=== PATIENT | female | born 1980 | race African-American/Black ===

== ENCOUNTER → 2017-11-21 | Outpatient (CLI) | payer BC ==
[~2017-11-21] MED LIST: GELATIN SPONGE SIZE 12-7MM SPONGE.; LIDOCAINE WITH 8.4% SOD BICARB 3 ML DISP.SYRIN.; MIDAZOLAM HCL/PF 2 MG/2 ML VIAL.; fentaNYL PF VIAL 100 MCG/2 ML VIAL
[2017-11-21 09:19] LABS: ADD MAN DIFF? NO
[2017-11-21 09:33] LABS: BASO % 1 % (0-3); EOS # 0.1 x10^3/uL (0.0-0.7); EOS % 2 % (0-3); HEMATOCRIT 35.3 % (36.0-47.0); HEMOGLOBIN 12.1 g/dL (12.0-15.5); LYMPH # 1.4 x10^3/uL (1.0-4.8); LYMPH % 27 % (24-48); MEAN CORPUSCULAR HEMOGLOBIN 32 pg (25-35); MEAN CORPUSCULAR HGB CONC 34 g/dL (31-37); MEAN CORPUSCULAR VOLUME 92 fL (79-100); MONO # 0.4 x10^3/uL (0.0-1.1); MONO % 8 % (0-9); NEUT # 3.3 x10^3uL (1.8-7.7); NEUT % 63 % (31-73); PLATELET COUNT 290 x10^3/uL (140-400); RED BLOOD COUNT 3.82 x10^6/uL (3.50-5.40); RED CELL DISTRIBUTION WIDTH 12.9 % (11.5-14.5); WHITE BLOOD COUNT 5.2 x10^3/uL (4.0-11.0)
[2017-11-21 09:34] LABS: PARTIAL THROMBOPLASTIN TIME 27 SEC (24-38); PROTHROMBIN TIME PATIENT 12.4 SEC (11.7-14.0)
[2017-11-21] MEDS: MIDAZOLAM HCL/PF 2 MG/2 ML VIAL. IV ×2 (10:45)
[2017-11-21] MEDS: fentaNYL PF VIAL 100 MCG/2 ML VIAL IV ×2 (10:45)
[2017-11-21] MEDS: LIDOCAINE WITH 8.4% SOD BICARB 3 ML DISP.SYRIN. IJ ×2 (10:45)
== END | disposition home or self-care (01) ==
LOC: INTRAD 08:54
DX: R80.9 Proteinuria, unspecified (principal); I10 Essential (primary) hypertension; E11.9 Type 2 diabetes mellitus without complications; Z90.710 Acquired absence of both cervix and uterus; Z79.01 Long term (current) use of anticoagulants; Z86.39 Personal history of other endocrine, nutritional and metabolic disease
CPT/HCPCS: 36415; 50200; 76942; 85025; 85610; 85730; 99152; J2250; J3010

== ENCOUNTER → 2019-02-20 | Outpatient (CLI) | payer BC, SELFPAY ==
[2017-11-21 13:20] VITALS: BP 112/73
[~2019-02-20] MED LIST changes: +COD1CAPS2 PO; +FLUT9.9S NS; -GELATIN SPONGE SIZE 12-7MM SPONGE.; +GLIP10TA13 PO; +INSU100I17 SQ; +INSU100I18 SQ; +INSU100I30 SQ; -LIDOCAINE WITH 8.4% SOD BICARB 3 ML DISP.SYRIN.; +LORA10TA68 PO; +LOSA-73 PO; -MIDAZOLAM HCL/PF 2 MG/2 ML VIAL.; +SITA100T PO; -fentaNYL PF VIAL 100 MCG/2 ML VIAL
--- NOTE | 2019-02-20 09:17 | RAD ---
February 20, 2019 INDICATION: Microscopic hematuria. COMPARISON: None available. TECHNIQUE: Sonographic evaluation of the abdomen is performed utilizing based on color Doppler. FINDINGS: Visualized portions of the pancreas appear normal. Distal body and tail are obscured by bowel gas. Gallbladder is normal in appearance without evidence for gallbladder wall thickening, gallstones or pericholecystic fluid. Common bile duct measures 3 mm. There is increased echogenicity of the hepatic parenchyma suggestive of hepatocellular disease, most commonly hepatic steatosis. This limits evaluation for underlying hepatic masses. There is hepatopedal flow within the portal venous system. Right hepatic lobe measures 14.6 cm. The right kidney measures 12.0 x 5.1 x 5.5 cm. The left kidney measures 11.3 x 4.6 x 6.4 cm. Left kidney is poorly visualized. There is a 2.8 x 1.6 x 2.1 cm simple appearing renal cyst in the mid to inferior pole the left kidney. Spleen measures 9.2 cm in craniocaudal dimension. Aorta and IVC are within normal limits. There is no free fluid within the abdomen. IMPRESSION: 1. No sonographic evidence for obstructive uropathy. A 2.8 cm simple appearing cyst is identified in the mid to inferior pole the left kidney. Otherwise, left kidney is poorly visualized. No suspicious solid mass or renal calculi. If there is persistent clinical concern, further evaluation with CT urogram may be of benefit. 2. Increased echogenicity of the hepatic parenchyma is suggestive of hepatocellular disease, most commonly hepatic steatosis. Electronically signed by: Temi Pete MD (02/20/2019 9:14 AM) [id number]
== END | disposition home or self-care (01) ==
LOC: US 07:54
PROVIDERS: ATTEND Urology
DX: N28.1 Cyst of kidney, acquired (principal)
CPT/HCPCS: 76700